=== PATIENT | female | born 1965 | race Caucasian/White ===

== ENCOUNTER → 2023-07-16 | Outpatient (CLI) | payer SELFPAY ==
[2023-07-16 11:32] LABS: SERUM TEARS COLLECTION SPECIMEN PROCESSED
== END | disposition home or self-care (01) ==
PROVIDERS: Referring Provider Ophthalmology; Visit Provider Ophthalmology
DX: H04.123 Dry eye syndrome of bilateral lacrimal glands (principal)

== ENCOUNTER → 2023-11-28 | Outpatient (CLI) | payer SELFPAY ==
[2023-11-28 10:24] LABS: SERUM TEARS COLLECTION SPECIMEN PROCESSED
== END | disposition home or self-care (01) ==
PROVIDERS: Referring Provider Ophthalmology; Visit Provider Ophthalmology
DX: H04.123 Dry eye syndrome of bilateral lacrimal glands (principal)

== ENCOUNTER → 2024-07-10 | Outpatient (CLI) | payer SELFPAY ==
[2024-07-10 13:29] LABS: SERUM TEARS COLLECTION SPECIMEN PROCESSED
== END | disposition home or self-care (01) ==
PROVIDERS: Referring Provider Ophthalmology; Visit Provider Ophthalmology
DX: H04.123 Dry eye syndrome of bilateral lacrimal glands (principal)

== ENCOUNTER → 2024-11-24 | Outpatient (CLI) | payer SELFPAY ==
[2024-11-24 11:32] LABS: SERUM TEARS COLLECTION SPECIMEN PROCESSED
== END | disposition home or self-care (01) ==
LOC: LAB 09:10
PROVIDERS: Referring Provider Ophthalmology; Visit Provider Ophthalmology
DX: H04.123 Dry eye syndrome of bilateral lacrimal glands (principal)